=== PATIENT | female | born 1935 | race Caucasian/White ===

== ENCOUNTER 2016-12-08 15:36 | Emergency (ER) | payer MEDICARE, BC ==
[~2016-12-08] VITALS: Ht 165.1 cm; Wt 62.6 kg
[~2016-12-08 15:36] MED LIST: Docusate Sodium PO; LABE100T PO; LOSA1TAB39 PO; TOLT2CAP PO; WARF2TAB6 PO
[2016-12-08] MEDS ORDERED: FURO-151 PO (16:00)
[2016-12-08] MEDS ORDERED: WARF5TAB6 PO (16:00)
[2016-12-08 16:49] LABS: BASOPHILS % (AUTO) 0.7 % (0.0-2.0); EOSINOPHILS % (AUTO) 1.4 % (0.0-7.0); HEMATOCRIT 30.1 % (37.0-47.0); HEMOGLOBIN 9.9 g/dL (12.0-16.0); LYMPHOCYTES # (AUTO) 0.5 K/uL (0.8-4.8); LYMPHOCYTES % (AUTO) 16.6 % (20.5-51.5); MEAN CORPUSCULAR HEMOGLOBIN 30.6 uug (27.0-31.0); MEAN CORPUSCULAR HGB CONC 33 g/dL (32.0-37.0); MEAN CORPUSCULAR VOLUME 92.9 fL (81.0-99.0); MONOCYTES # (AUTO) 0.4 K/uL (0.1-1.30); MONOCYTES % (AUTO) 12.9 % (0.0-11.0); NEUTROPHILS # (AUTO) 2.3 K/uL (1.8-8.9); NEUTROPHILS % (AUTO) 68.4 % (38.5-71.5); PLATELET COUNT (AUTO) 137 K/uL (150-450); RED BLOOD CELL COUNT(AUTO) 3.24 MIL/uL (4.20-5.40); RED CELL DISTRIBUTION WIDTH 13.2 % (11.5-14.5); WHITE BLOOD COUNT (AUTO) 3.2 K/uL (4.0-11.2)
[2016-12-08 16:50] LABS: CREATININE 0.8 mg/dL (0.6-1.3); POTASSIUM 3.6 mmol/L (3.5-5.1)
[2016-12-08 17:02] LABS: ALBUMIN 3.5 g/dL (3.4-5.0); BILIRUBIN,DIRECT 0.1 mg/dL (0.0-0.2); BILIRUBIN,TOTAL 0.7 mg/dL (0.2-1.0); TOTAL PROTEIN, SERUM 6.2 g/dL (6.4-8.2)
--- NOTE | 2016-12-08 18:52 | NUR ---
Patient discharged to home in stable conditon. Written and verbal after care instructions given. Patient verbalizes understanding of instructions.PT WALKS IN STEADY GAIT ACCOMPANIED BY SO.
[2016-12-08 18:54] VITALS: BP 132/71
== END 2016-12-08 18:55 | disposition home or self-care (01) ==
LOC: ER 15:36
DX: L03.116 Cellulitis of left lower limb (principal); I89.0 Lymphedema, not elsewhere classified; I48.91 Unspecified atrial fibrillation; K21.9 Gastro-esophageal reflux disease without esophagitis; I10 Essential (primary) hypertension; M19.90 Unspecified osteoarthritis, unspecified site; C50.912 Malignant neoplasm of unspecified site of left female breast; Z79.01 Long term (current) use of anticoagulants; Z88.1 Allergy status to other antibiotic agents
CPT/HCPCS: 36415; 71010; 74176; 80048; 80076; 83880; 84484; 85025; 85379; 85730; 93005; 93970; 99285; A4663; 70030-TC

== ENCOUNTER 2017-01-13 14:52 | Emergency (ER) | payer MEDICARE, BC ==
[~2017-01-13] VITALS: Ht 162.6 cm; Wt 58.0 kg
[~2017-01-13 14:52] MED LIST changes: +FURO-151 PO; -TOLT2CAP PO; -WARF2TAB6 PO; +WARF5TAB6 PO
--- NOTE | 2017-01-13 15:15 | NUR ---
DR SCHMITT AT THE BEDSIDE FOR EVAL AND EXAM.
--- NOTE | 2017-01-13 16:27 | NUR ---
Patient discharged to home in stable conditon. Written and verbal after care instructions given. Patient verbalizes understanding of instructions.
[2017-01-13 16:28] VITALS: BP 101/72
== END 2017-01-13 16:33 | disposition home or self-care (01) ==
LOC: ER 15:54
DX: L03.116 Cellulitis of left lower limb (principal); I10 Essential (primary) hypertension; I48.91 Unspecified atrial fibrillation; K21.9 Gastro-esophageal reflux disease without esophagitis; M19.90 Unspecified osteoarthritis, unspecified site; C50.912 Malignant neoplasm of unspecified site of left female breast; Z79.01 Long term (current) use of anticoagulants
CPT/HCPCS: 93971; 99284; A4663

== ENCOUNTER 2017-11-20 11:20 | Inpatient (IN) | payer MEDICARE, BC ==
[~2017-11-20] VITALS: Ht 165.1 cm; Wt 60.3 kg
[~2017-11-20 11:20] MED LIST changes: +WARF-58 PO; -WARF5TAB6 PO
[2017-11-20] MEDS ORDERED: VANCOMYCIN IV 1,000 MG in IV DEXTROSE 5% 250 ML IV ONE (12:30)
[2017-11-20 12:32] LABS: CARBON DIOXIDE 31 mmol/L (21-32); CHLORIDE 107 mmol/L (98-107); CREATININE 0.8 mg/dL (0.6-1.3); GLUCOSE 124 mg/dL (74-106); POTASSIUM 3.6 mmol/L (3.5-5.1); UREA NITROGEN, BLOOD 23 mg/dL (7-18)
[2017-11-20 12:33] LABS: BASOPHILS # (AUTO) 0.1 K/uL (0.0-8.0); BASOPHILS % (AUTO) 1.2 % (0.0-2.0); EOSINOPHILS % (AUTO) 1.1 % (0.0-7.0); HEMATOCRIT 33.6 % (31.2-41.9); HEMOGLOBIN 11.2 g/dL (10.9-14.3); LYMPHOCYTES # (AUTO) 0.5 K/uL (20.0-40.0); LYMPHOCYTES % (AUTO) 10.5 % (20.5-51.5); MEAN CORPUSCULAR HEMOGLOBIN 32.2 uug (24.7-32.8); MEAN CORPUSCULAR HGB CONC 33 g/dL (32.3-35.6); MEAN CORPUSCULAR VOLUME 96.9 fL (75.5-95.3); MONOCYTES # (AUTO) 0.4 K/uL (2.0-10.0); MONOCYTES % (AUTO) 10.1 % (0.0-11.0); NEUTROPHILS # (AUTO) 3.4 K/uL (1.8-8.9); NEUTROPHILS % (AUTO) 77.1 % (38.5-71.5); PLATELET COUNT (AUTO) 235 K/uL (179-408); RED BLOOD CELL COUNT(AUTO) 3.47 MIL/uL (3.63-4.92); WHITE BLOOD COUNT (AUTO) 4.4 K/uL (3.8-11.8)
[2017-11-20 12:46] LABS: ALANINE AMINOTRANSFERASE 40 U/L (14-59); ALKALINE PHOSPHATASE 110 U/L (50-136); ASPARTATE AMINOTRANSFERASE 26 U/L (15-37); BILIRUBIN,DIRECT 0.2 mg/dL (0.0-0.2); BILIRUBIN,TOTAL 0.9 mg/dL (0.2-1.0); TOTAL PROTEIN, SERUM 6.3 g/dL (6.4-8.2)
[2017-11-20] MEDS ORDERED: VANCOMYCIN IV 200 ML ONE (13:17)
[2017-11-20 13:52] LABS: *BILIRUBIN,URIN NEGATIVE (NEGATIVE); *BLOOD, URINE NEGATIVE (NEGATIVE); *CLARITY,URINE CLEAR (CLEAR); *COLOR,URINE YELLOW (YELLOW); *KETONES,URINE NEGATIVE (NEGATIVE); *PROTEIN,URINE NEGATIVE (NEGATIVE); *UROBILINOGEN,URINE 0.2 E.U./dl (NORMAL); LEUKOCYTE ESTERASE ,URINE NEGATIVE (NEGATIVE); NITRITE, URINE NEGATIVE (NEGATIVE); PH,URINE 6.5 (5.0-8.0); UGLUCOSE NEGATIVE (NEGATIVE)
[2017-11-20 13:56] LABS: BACTERIA,URINE NONE SEEN /HPF (NONE SEEN); RBC,URINE 0-3 /HPF (0-3); WBC,URINE 0-3 /HPF (0-3)
[2017-11-20 13:57] LABS: SQUAMOUS EPITHELIAL CELL,UR FEW /HPF (NONE SEEN)
[2017-11-20 16:38] VITALS: BP 156/77
[2017-11-20] MEDS ORDERED: TEMAZEPAM 15 MG CAPSULE PO PRN (17:45)
[2017-11-20] MEDS ORDERED: MORPHINE SULFATE 2 MG/1 ML DISP.SYRIN IV PRN (17:45)
[2017-11-20] MEDS ORDERED: ACETAMINOPHEN 325 MG TABLET PO PRN (17:45)
[2017-11-20] MEDS ORDERED: ONDANSETRON 4 MG/2 ML VIAL IV PRN (17:45)
[2017-11-20] MEDS ORDERED: MORPHINE SULFATE 4 MG/1 ML DISP.SYRIN IV PRN (18:15)
[2017-11-20 20:00] VITALS: BP 144/67
[2017-11-20] MEDS ORDERED: Medication Not On Formulary EA ([Docusate Sodium] (Colace) 200 MG) PO SCH (21:00)
[2017-11-20] MEDS ORDERED: DOCUSATE SODIUM 100 MG CAPSULE PO SCH (21:00)
[2017-11-20] MEDS ORDERED: CLINDAMYCIN PHOSPHATE 600 MG/4 ML VIAL ONE (21:46)
[2017-11-20] MEDS: LABETALOL HCL 100 MG TABLET PO SCH (21:58)
[2017-11-20] MEDS: ACIDOPHILUS/BULGARICUS CHEW TAB PO SCH (21:58)
[2017-11-20] MEDS: PIPERACILLIN/TAZOBACTAM/D5W 3.375 G in PREMIXED 1 EACH IV SCH (21:59)
[2017-11-20] MEDS: CLINDAMYCIN PHOSPHATE IV 600 MG in IV DEXTROSE 5% 100 ML IV SCH (22:51)
[2017-11-21] VITALS: BP 132/64
[2017-11-21 04:00] VITALS: BP 139/78
[2017-11-21] MEDS: PIPERACILLIN/TAZOBACTAM/D5W 3.375 G in PREMIXED 1 EACH IV SCH ×2 (05:09→13:41)
[2017-11-21] MEDS: ACIDOPHILUS/BULGARICUS CHEW TAB PO SCH ×2 (06:20→13:40)
[2017-11-21] MEDS: CLINDAMYCIN PHOSPHATE IV 600 MG in IV DEXTROSE 5% 100 ML IV SCH ×2 (06:20→14:44)
[2017-11-21 06:57] LABS: BASOPHILS # (AUTO) 0.1 K/uL (0.0-8.0); BASOPHILS % (AUTO) 1.4 % (0.0-2.0); EOSINOPHILS # (AUTO) 0.1 K/uL (0.0-0.7); EOSINOPHILS % (AUTO) 1.6 % (0.0-7.0); HEMATOCRIT 35.6 % (31.2-41.9); HEMOGLOBIN 11.9 g/dL (10.9-14.3); LYMPHOCYTES # (AUTO) 0.6 K/uL (20.0-40.0); LYMPHOCYTES % (AUTO) 14.5 % (20.5-51.5); MEAN CORPUSCULAR HEMOGLOBIN 32.5 uug (24.7-32.8); MEAN CORPUSCULAR HGB CONC 33 g/dL (32.3-35.6); MEAN CORPUSCULAR VOLUME 97.5 fL (75.5-95.3); MONOCYTES # (AUTO) 0.4 K/uL (2.0-10.0); MONOCYTES % (AUTO) 10.1 % (0.0-11.0); NEUTROPHILS # (AUTO) 2.9 K/uL (1.8-8.9); NEUTROPHILS % (AUTO) 72.4 % (38.5-71.5); PLATELET COUNT (AUTO) 249 K/uL (179-408); RED BLOOD CELL COUNT(AUTO) 3.65 MIL/uL (3.63-4.92)
[2017-11-21] MEDS ORDERED: PANTOPRAZOLE SODIUM 40 MG TABLET.DR PO SCH (07:00)
[2017-11-21 07:24] LABS: THYROID STIMULATING HORMONE 2.575 mIU/mL (0.358-3.740)
[2017-11-21 07:45] LABS: ALANINE AMINOTRANSFERASE 33 U/L (14-59); ALKALINE PHOSPHATASE 111 U/L (50-136); ASPARTATE AMINOTRANSFERASE 21 U/L (15-37); BILIRUBIN,TOTAL 1.1 mg/dL (0.2-1.0); CARBON DIOXIDE 30 mmol/L (21-32); CHLORIDE 109 mmol/L (98-107); CHOLESTEROL 156 mg/dL (<200); CREATININE 0.8 mg/dL (0.6-1.3); GLUCOSE 96 mg/dL (74-106); HDL CHOLESTEROL 64 mg/dL (40-60); PHOSPHOROUS 2.8 mg/dL (2.5-4.9); POTASSIUM 3.7 mmol/L (3.5-5.1); TOTAL PROTEIN, SERUM 6.1 g/dL (6.4-8.2); TRIGLYCERIDES 75 MG/DL (30-150); UREA NITROGEN, BLOOD 14 mg/dL (7-18)
[2017-11-21] MEDS ORDERED: HYDROCHLOROTHIAZIDE 25 MG TABLET PO SCH (09:00)
[2017-11-21] MEDS ORDERED: Medication Not On Formulary EA (Losartan/Hydrochlorothiazide (Losartan-Hctz 100-25 Mg Ta PO SCH (09:00)
[2017-11-21] MEDS ORDERED: LOSARTAN POTASSIUM 50 MG TABLET PO SCH (09:00)
[2017-11-21] MEDS ORDERED: FUROSEMIDE 40 MG TABLET PO SCH (09:00)
[2017-11-21] MEDS: LABETALOL HCL 100 MG TABLET PO SCH (09:47)
[2017-11-21] MEDS ORDERED: TEMAZEPAM 7.5 MG CAPSULE PO PRN (10:00)
[2017-11-21 11:08] VITALS: BP 135/70
[2017-11-21] MEDS ORDERED: Z GUARD REMEDY PASTE 57 GM TUBE TOP PRN (14:30)
[2017-11-21 15:10] VITALS: BP 131/66
[2017-11-21] MEDS ORDERED: WARFARIN SODIUM 4 MG TABLET PO SCH (17:00)
[2017-11-21] MEDS ORDERED: ACID1TAB4 PO (17:46)
[2017-11-21] MEDS ORDERED: WARF4TAB41 PO (17:46)
[2017-11-21] MEDS ORDERED: CLINDAMYCIN 300 MG PO (17:46)
== END 2017-11-21 19:24 | disposition home health service (06) | DRG 603 ==
LOC: ER 11:20 → TELE 16:00 → MED 11-21 11:05
PROVIDERS: ADMIT Internal Medicine; ATTEND Internal Medicine
DX: L03.116 Cellulitis of left lower limb (principal); D68.59 Other primary thrombophilia; I48.2 Chronic atrial fibrillation; I11.9 Hypertensive heart disease without heart failure; I89.0 Lymphedema, not elsewhere classified; K21.9 Gastro-esophageal reflux disease without esophagitis; G31.84 Mild cognitive impairment of uncertain or unknown etiology; W19.XXXA Unspecified fall, initial encounter; S30.0XXA Contusion of lower back and pelvis, initial encounter; S80.12XA Contusion of left lower leg, initial encounter; Y92.009 Unspecified place in unspecified non-institutional (private) residence as the place of occurrence of the external cause; Z79.01 Long term (current) use of anticoagulants; Z87.440 Personal history of urinary (tract) infections; Z96.643 Presence of artificial hip joint, bilateral; Z74.09 Other reduced mobility; M19.90 Unspecified osteoarthritis, unspecified site; N32.81 Overactive bladder
CPT/HCPCS: 36415; 70030-TC; 71045; 83735; 84100; 84443; 85025; 85610; 85730; 93005; A4663; J2543; J3370; J3490; J7050; J7060